=== PATIENT | female | born 1970 | race Two or more races ===

== ENCOUNTER 2022-09-03 07:04 | Day surgery (SDC) | payer OTHER ==
[~2022-09-03] VITALS: Ht 162.6 cm; Wt 86.2 kg
[2022-09-03] MEDS ORDERED: LIDOCAINE 2% 100 MG/5 ML UJET TP ONE (07:57)
[2022-09-03] MEDS ORDERED: fentaNYL citrate 0.05 MG/ML VIAL ONE (07:57)
[2022-09-03] MEDS ORDERED: fentaNYL citrate 0.05 MG/ML VIAL IVP ONE (08:50)
== END 2022-09-03 08:54 | disposition home or self-care (01) ==
LOC: MOR 07:04 → MMU 07:04 → MOR 08:54
PROVIDERS: ATTEND Internal Medicine Gastroenterology
DX: Z12.11 Encounter for screening for malignant neoplasm of colon (principal); K63.5 Polyp of colon; I10 Essential (primary) hypertension; E78.00 Pure hypercholesterolemia, unspecified; E11.9 Type 2 diabetes mellitus without complications; Z79.84 Long term (current) use of oral hypoglycemic drugs; Z79.899 Other long term (current) drug therapy; Z90.710 Acquired absence of both cervix and uterus; Z90.49 Acquired absence of other specified parts of digestive tract
CPT/HCPCS: 45385; J3010